=== PATIENT | male | born 1975 ===

== ENCOUNTER 2018-06-26 20:53 | Emergency (ER) | payer SELFPAY ==
--- NOTE | 2018-06-26 20:54 | EDPHY ---
H & P Time Seen by Provider: 06/26/18 21:00 HPI/ROS: CHIEF COMPLAINT: Chest pain x4 days HISTORY OF PRESENT ILLNESS: 43-year-old homeless male arrives via ambulance from [place] [facility] [place] he was [place], called 911 complaining of chest pain for the past 4 days. He admits to heavy daily alcohol abuse. States that he has kicked in his chest by a bull 2 months ago. Denies hallucination. Denies suicidal homicidal ideation. Denies cocaine use. Denies headache. Denies seizure. States that his pain is not exacerbated with exertional activity. States that he walks several miles today after taking the bus from [place] and has not experienced chest pain or dyspnea with exertion REVIEW OF SYSTEMS: 10 systems reviewed and negative with the exception of the elements mentioned in the history of present illness PAST MEDICAL & SURGICAL HISTORY: No pertinent medical or surgical history SOCIAL HISTORY:Admits to alcohol abuse PHYSICAL EXAM (Prior to examination, patient consented to physical exam, hands were washed and my usual and customary physical exam procedures followed) 1) GENERAL: poorly kept, foul smelling, smells of alcohol,, alert and oriented. Appears to be in no acute distress. 2) HEAD: Normocephalic, atraumatic 3) HEENT: Pupils equal, round, reactive to light bilaterally. Sclera anicteric. 4) NECK: Full range of motion, no meningeal signs. 5) LUNGS: Clear auscultation bilaterally, no wheezes, no rhonchi, no retractions. 6) HEART: Regular rate and rhythm, no murmur, no heave, no gallop. 7) ABDOMEN: No guarding, no rebound, no focal tenderness, negative McBurney's, negative Cortez's, negative Rovsing's, negative peritoneal sign, 8) MUSCULOSKELETAL: Moving all extremities, no focal areas of tenderness, no obvious trauma. No peripheral edema or discoloration. Negative Homans no palpable 9) BACK: No CVA tenderness, no midline vertebral tenderness, no fluctuance, no step-off, no obvious trauma, no visual or palpable abnormality. 10) SKIN: No rash, no petechiae. 11) Psychiatric: Patient is oriented X 3, there is no agitation. DIFFERENTIAL DIAGNOSIS: In no particular order, including but not limited to myocardial ischemia, pulmonary embolus, chest wall pain, pleural inflammation and pulmonary infectious causes. Constitutional: Initial Vital Signs Temperature (C) 36.6 C 06/26/18 21:00 Heart Rate 94 06/26/18 21:00 Respiratory Rate 16 06/26/18 21:00 Blood Pressure 134/100 H 06/26/18 21:00 O2 Sat (%) 92 06/26/18 21:00 O2 Delivery Mode Room Air Allergies/Adverse Reactions: No Known Allergies Allergy (Unverified 06/26/18 21:00) Medical Decision Making - Diagnostics Imaging Results: Imaging Impressions Chest X-Ray 06/26/18 21:00 Impression: Negative portable chest. Images reviewed myself ED Course/Re-evaluation: 9:17 p.m.: Will obtain diagnostic studies including troponin, chest x-ray, EKG. Care of patient under supervision of secondary supervising physician Dr Farhat Arriaza with whom I discussed case. 9:25 p.m.: Point of care troponin negative at this time 9:43 p.m.: Re-evaluation patient is sleeping. Chest x-ray negative for acute pathology, EKG shows no ST elevation or signs of acute coronary syndrome. Combined with negative troponin. Patient has a low risk heart pathway score. I think that acute coronary syndrome is less than likely in this patient. He would like to be discharged would [facility]. He denies suicidal homicidal ideation. Denies seizure or hallucination. Doubt delirium tremens. Plan will be discharge to [facility] with Librium. - Data Points Laboratory Results: Laboratory Results 06/26/18 21:10 06/26/18 21:10 06/26/18 06/26/18 06/26/18 21:12 21:10 21:10 WBC 4.09 10^3/uL 10^3/uL (3.80-9.50) RBC 4.70 10^6/uL 10^6/uL (4.40-6.38) Hgb 15.0 g/dL g/dL (13.7-17.5) Hct 44.7 % % (40.0-51.0) MCV 95.1 fL fL (81.5-99.8) MCH 31.9 pg pg (27.9-34.1) MCHC 33.6 g/dL g/dL (32.4-36.7) RDW 14.0 % % (11.5-15.2) Plt Count 202 10^3/uL 10^3/uL (150-400) MPV 10.0 fL fL (8.7-11.7) Neut % (Auto) 34.8 % L % (39.3-74.2) Lymph % (Auto) 51.8 % H % (15.0-45.0) [place] % (Auto) 10.0 % % (4.5-13.0) Eos % (Auto) 1.5 % % (0.6-7.6) Baso % (Auto) 1.7 % % (0.3-1.7) Nucleat RBC Rel Count 0.0 % % (0.0-0.2) Absolute Neuts (auto) 1.42 10^3/uL L 10^3/uL (1.70-6.50) Absolute Lymphs (auto) 2.12 10^3/uL 10^3/uL (1.00-3.00) Absolute Monos (auto) 0.41 10^3/uL 10^3/uL (0.30-0.80) Absolute Eos (auto) 0.06 10^3/uL 10^3/uL (0.03-0.40) Absolute Basos (auto) 0.07 10^3/uL 10^3/uL (0.02-0.10) Absolute Nucleated RBC 0.00 10^3/uL 10^3/uL (0-0.01) Immature Gran % 0.2 % % (0.0-1.1) Immature Gran # 0.01 10^3/uL 10^3/uL (0.00-0.10) Sodium 144 mEq/L mEq/L (135-145) Potassium 3.7 mEq/L mEq/L (3.3-5.0) Chloride 107 mEq/L mEq/L (97-110) Carbon Dioxide 23 mEq/l mEq/l (22-31) Anion Gap 14 mEq/L mEq/L (6-14) BUN 6 mg/dL L mg/dL (7-23) Creatinine 0.7 mg/dL mg/dL (0.7-1.3) Estimated GFR > 60 Glucose 112 mg/dL H mg/dL (70-100) Calcium 8.9 mg/dL mg/dL (8.5-10.4) POC Troponin I 0.00 ng/mL ng/mL (0.00-0.08) Point of Care Test Results: Chemistry 06/26/18 21:12 POC Troponin I 0.00 ng/mL ng/mL (0.00-0.08) Departure - Departure Disposition: Home, Routine, Self-Care Clinical Impression: Alcohol abuse Condition: Good Instructions: Abuse of Alcohol (ED), Chlordiazepoxide (By mouth) Additional Instructions: Please consider long-term alcohol sobriety. Seek medical attention if you develop new or worsening chest pain, if you develop new or worsening shortness of breath, or any other symptoms that concern you. Referrals: [facility] [Outside] - As per Instructions
[2018-06-26 21:33] LABS: PLATELET COUNT 202 10^3/uL (150-400)
[2018-06-26] MEDS ORDERED: CHLORDIAZEPOXIDE 25MG PREPK#6 BTL TAKEHOME ONE (21:45)
[2018-06-26 22:23] VITALS: BP 132/70
--- NOTE | 2018-06-26 22:32 | CPEKG ---
Test Reason : OPEN Blood Pressure : / mmHG Vent. Rate : 092 BPM Atrial Rate : 094 BPM P-R Int : 161 ms QRS Dur : 100 ms QT Int : 353 ms P-R-T Axes : 022 038 027 degrees QTc Int : 437 ms Sinus rhythm Ventricular premature complex Confirmed by Farhat Arriaza ([id number]) on 06/26/2018 10:31:44 PM Referred By: Confirmed By:Farhat Arriaza
== END 2018-06-26 22:24 | disposition home or self-care (01) ==
DX: R07.9 Chest pain, unspecified (principal); F10.129 Alcohol abuse with intoxication, unspecified; Z59.0 Homelessness
CPT/HCPCS: 84484-PO